=== PATIENT | female | born 1985 | race Caucasian/White ===

== ENCOUNTER 2025-01-06 07:40 | Emergency (ER) | payer OTHER ==
[2025-01-06 07:45] VITALS: PULSE 76; RESP 20; TEMP 97.6
[2025-01-06] MEDS ORDERED: IOPAMIDOL 370 MG/ML 100 ML INFUS..BTL INJ ONE (08:08)
[2025-01-06] MEDS ORDERED: LACTATED RINGER'S 1,000 ML IV ONE (08:15)
[2025-01-06] MEDS ORDERED: PROMETHAZINE HCL (IM) 25 MG/ML VIAL IM ONE (08:30)
[2025-01-06] MEDS: PROMETHAZINE 25MG/ NS 50ML (IV) IV ONE (08:40)
[2025-01-06] MEDS: KETOROLAC TROMETHAMINE 30 MG/ML VIAL IV ONE (08:40)
[2025-01-06] MEDS: FAMOTIDINE 20 MG/2 ML VIAL IV ONE (08:40)
[2025-01-06] MEDS: SODIUM CHLORIDE 0.9% 1000ML 1,000 ML IV STA (08:41)
[2025-01-06] MEDS ORDERED: ULTRAM 50MG50 MG PO (10:08)
[2025-01-06] MEDS ORDERED: TYLENOL325 MG PO (10:08)
[2025-01-06] MEDS ORDERED: ONDANSETRON ODT4 MG PO (10:08)
[2025-01-06 10:21] VITALS: BP 130/77; PULSE 68; RESP 18; TEMP 98; O2SAT 99
== END 2025-01-06 10:20 | disposition home or self-care (01) ==
LOC: FSED 07:47
DX: R10.31 Right lower quadrant pain (principal); N70.11 Chronic salpingitis; R11.2 Nausea with vomiting, unspecified
CPT/HCPCS: 74176; 76830; 76856; 80053; 81003; 85025; 96374; 96375; 99283; J1885; J2550; J7030; Q9967